=== PATIENT | female | born 1975 | race Caucasian/White ===

== ENCOUNTER 2018-08-19 14:52 | Outpatient (REF) | payer MEDICARE, SELFPAY ==
[2018-08-19 21:27] LABS: Anion Gap 8.6 mmol/L (3-11); BUN 15 mg/dL (7-18); CO2 29.4 mmol/L (21.0-32.0); CREATININE 0.96 mg/dL (0.55-1.02); Calcium 9.2 mg/dL (8.5-10.1); Chloride 102 mmol/L (98-107); Glucose 87 mg/dL (70-100); Sodium 140 mmol/L (136-145)
[2018-08-19 21:40] LABS: Cholesterol 194 mg/dL (50-200); HDL Cholesterol 47 mg/dL (40-60); LDL CHOLESTEROL 124 mg/dL (<100); Triglyceride 105 mg/dL (30-150)
== END 2018-08-19 15:12 ==
LOC: NCHCN 14:52
PROVIDERS: PCP Nurse Practitioner Family; Visit Provider Nurse Practitioner Family
DX: I10 Essential (primary) hypertension (principal); F34.1 Dysthymic disorder; J45.990 Exercise induced bronchospasm; L40.9 Psoriasis, unspecified; E66.01 Morbid (severe) obesity due to excess calories
CPT/HCPCS: 80048; 80061; 83721

== ENCOUNTER 2018-09-29 11:24 | Outpatient (CLI) | payer MEDICARE, SELFPAY ==
--- NOTE | 2018-09-29 14:47 | DI.RAD_ITS ---
SYMPTOMS/DIAGNOSIS: RIGHT KNEE PAIN, M25.561, S/P FALL ON 09/09/18 OUT OF FRONT DOOR RIGHT KNEE: Three views. No acute or healing fracture or dislocation is seen. The soft tissues are unremarkable. IMPRESSION: No acute abnormality.
== END 2018-09-29 11:44 ==
PROVIDERS: PCP Nurse Practitioner Family; Visit Provider Nurse Practitioner
DX: M25.561 Pain in right knee (principal)
CPT/HCPCS: 73562

== ENCOUNTER 2019-04-11 18:49 | Emergency (ER) | payer MEDICARE, SELFPAY ==
[2019-04-11 19:21] VITALS: BP 144/98; PULSE 74; RESP 18; TEMP 36.6; O2SAT 98
--- NOTE | 2019-04-11 19:42 | ED.GENADUL_ITS ---
Discharge Plan Disposition Patient Disposition: HOME Condition: Good Discharge Details Chief Complaint: DentalOral Clinical Impression: Infected dental carries Primary Care Provider: Malini Tijerina ED Provider: Roby Huntley Home Meds and New Rx's Prescriptions: New clindamycin HCl 150 mg capsule 450 mg PO TID 7 Days Qty: 63 RF: 0 No Action WELLBUTRIN SR 200 MG TABLET.SA 200 mg PO BID RF: 0 omega-3 fatty acids-fish oil 1 EACH capsule 1 ea PO RF: 0 ozikihvrfrus-wnaw-psntb acid [Daily Multiple] 1 EACH tablet 1 ea PO RF: 0 metformin 850 MG tablet 850 mg PO Q12H Qty: 180 RF: 4 estradiol 1 MG tablet 1 mg PO DAILY Qty: 90 RF: 4 progesterone micronized [Prometrium] 100 MG capsule 100 mg PO DAILY Qty: 90 RF: 4 lisinopril 10 MG tablet 10 mg PO DAILY RF: 0 Discharge Instructions Instructions: Dental Caries (ED) Additional Instructions: Please take the antibiotic as prescribed. Please continue to take 1000 mg of Tylenol every 6 hours and 600 mg of ibuprofen every 6 hours. Please make sure you are eating yogurt with live cultures while taking the antibiotic to prevent any diarrhea. Please follow-up with your dentist as soon as possible. If you notice any worsening of your symptoms, or any new symptoms such as vomiting, diarrhea, fever, chills, shortness of breath, chest pain, numbness, weakness, or fainting , please return immediately to the emergency department for reevaluation. Please follow up with your primary care provider as soon as possible for reassessment and reevaluation. As always, it was a pleasure participating in your medical care today. Medical Decision Making This is a 43-year-old female who presents today for evaluation of left lower dental pain. She has known dental caries. Physical exam demonstrates dental caries throughout, no evidence of nuchal rigidity, meningitis, periapical abscess, or significant trismus. No evidence of peritonsillar abscess. Signs and symptoms inconsistent with Ludewig's angina. She has no difficulty swallowing, drinking or bending her neck or head. Physical exam is notably concerning for pulpitis. And infected dental caries. We will start the patient on clindamycin secondary to her other antibiotic allergies. We will give her d ental sheet. Dental block was performed the patient had complete resolution of her symptoms with this. Recommend continue Tylenol and Motrin as needed for pain. I have extensively reviewed the treatment plan and discharge instructions with the patient and their family. I have addressed all patient concerns at this time. The patient and family was made aware of what symptoms to monitor for that would warrant a return to the emergency department. Discussed the plan with the patient and family, they demonstrate verbal understanding and agreement with our assessment and plan at this time. Time out was taken to identify the correct patient, procedure, and site. Risks and benefits were discussed with the patient and consent was obtained. Direct pressure was held over the area prior to the procedure to reduce painful injection. 5 cc?s of Lidocaine 1% and Bupivacaine 0.25% was instilled into the left lower posterior jaw space with a 27 gauge needle.Complete analgesia was obtained. The patient tolerated the procedure. There were no complications. HPI General Date/Time Provider Initiated Documentation: 04/11/19 18:59 . HPI Narrative: Is a 43-year-old female with a past medical history of hypertension, diabetes, who presents today for evaluation of left lower dental pain. Patient states that pain is been present for the last 3 days. She has known dental caries but does not see dentist secondary to lack of dental insurance. She denies any fevers or chills, she denies any headache. She does admit to pain towards the left lateral jaw but not over the temples. She denies any discharge. She has not been on any antibiotics recently. She has no other com plaints at this time. Related Data Home Medications Medication Instructions Recorded Confirmed Wellbutrin Sr 200 mg PO BID 07/29/12 12/24/17 lisinopril 10 mg PO DAILY 08/19/14 12/24/17 dxxqzlzexqxu-gaao-ahcug acid 1 ea PO 11/01/15 [Daily Multiple] omega-3 fatty acids-fish oil 1 ea PO 11/01/15 metformin 850 mg PO Q12H #180 tab 09/04/17 estradiol 1 mg PO DAILY #90 tab 09/07/17 progesterone micronized 100 mg PO DAILY #90 cap 09/07/17 [Prometrium] clindamycin HCl 450 mg PO TID 7 Days #63 cap 04/11/19 Previous Rx's Medication Instructions Recorded metformin 850 mg PO Q12H #180 tab 09/04/17 estradiol 1 mg PO DAILY #90 tab 09/07/17 progesterone micronized 100 mg PO DAILY #90 cap 09/07/17 [Prometrium] clindamycin HCl 450 mg PO TID 7 Days #63 cap 04/11/19 Allergies Allergy/AdvReac Type Severity Reaction Status Date / Time lactose Allergy Severe GI Symptoms Unverified 04/11/19 19:26 Penicillins Allergy Intermediate Rash Unverified 04/11/19 19:26 vancomycin Allergy Intermediate Severe GI Unverified 04/11/19 19:26 Symptoms General Stated Complaint: DentalOral STEPHENIE: 4 Review of Systems Review of Systems All systems reviewed & are unremarkable except as noted in HPI and below PFSH Social History Smoking/Tobacco Use Status: Former Tobacco Use Drug use: Never Do you feel safe in your relationship?: Yes Exam Narrative Exam Narrative: 1.Const: Well-nourished, Well-developed, appearing stated age 2.Eyes: PERRL, no conjunctival injection, and symmetrical lids. 3.ENT: Atraumatic external nose and ears. Moist MM. Neck: Symmetric, trachea midline, No thyromegaly. No evidence of periapical abscess, no significant s welling, no trismus, no evidence of retropharyngeal abscess, or tonsillar exudate. 4.CVS: +S1/S2, No murmurs or gallops. Peripheral pulses 2+ and equal in all extremities. Brisk capillary refill in all extremities. 5.RESP: Unlabored respiratory effort. Clear to auscultation bilaterally. No wheezes rales or rhonchi 6.GI: Soft, Nontender/Nondistended, No hepatosplenomegaly. No guarding or r ebound. 7.MSK: Normocephalic/Atraumatic, Extremities w/o deformity or ttp No cyanosis or clubbing, Normal movement of all extremities 8.Skin: Warm, Dry. No rashes or lesions. 9.Neuro: drafter commercial II-XII grossly intact. Sensation grossly intact, no focal neurologic deficits. 10.Psych: (AAO) x3. Appropriate mood and affect Course Vital Signs Temperature 36.6 C 04/11/19 19:21 Pulse 74 04/11/19 19:21 Respiratory Rate 18 04/11/19 19:21 Blood Pressure 144/98 H 04/11/19 19:21 Pulse Oximetry 98 04/11/19 19:21 Temperature 36.6 C 04/11/19 19:21 Temperature Source Skin 04/11/19 19:21 Pulse 74 04/11/19 19:21 Respiratory Rate 18 04/11/19 19:21 Respiratory Effort Non-Labored 04/11/19 19:26 Blood Pressure 144/98 H 04/11/19 19:21 Blood Pressure Position Sitting 04/11/19 19:21 Pulse Oximetry 98 04/11/19 19:21 Oxygen Delivery Method Room Air 04/11/19 19:21 Oxygen Flow Rate 0 04/11/19 19:21 Pain Level 10 04/11/19 19:21 Comment 1000mg APAP @ 1400 04/11/19 19:21
[2019-04-11] MEDS: Clindamycin 150 MG CAP 450 MG PO (20:00)
== END 2019-04-11 20:02 | disposition home or self-care (01) ==
PROVIDERS: Emergency Provider Student in an Organized Health Care Education/Training Program; PCP Nurse Practitioner Family
DX: R68.84 Jaw pain (principal); K04.7 Periapical abscess without sinus
CPT/HCPCS: 64402

== ENCOUNTER 2019-05-19 12:10 | Outpatient (REF) | payer MEDICARE, SELFPAY ==
[2019-05-19 22:46] LABS: BUN 14 mg/dL (7-18); CREATININE 0.93 mg/dL (0.55-1.02); Calcium 8.6 mg/dL (8.5-10.1); Chloride 106 mmol/L (98-107); Glucose 96 mg/dL (70-100); Potassium 4.2 mmol/L (3.5-5.1); Sodium 141 mmol/L (136-145)
[2019-05-19 23:00] LABS: Hemoglobin A1C 5.9 % (4.5-6.2)
== END 2019-05-19 12:30 ==
LOC: NCHCN 12:10
PROVIDERS: PCP Nurse Practitioner Family; Visit Provider Nurse Practitioner Family
DX: I10 Essential (primary) hypertension (principal); F34.1 Dysthymic disorder; E28.2 Polycystic ovarian syndrome; J45.990 Exercise induced bronchospasm; E66.01 Morbid (severe) obesity due to excess calories; Z13.1 Encounter for screening for diabetes mellitus
CPT/HCPCS: 80048; 83036

== ENCOUNTER 2020-01-15 12:22 | Emergency (ER) | payer OTHER, SELFPAY ==
--- NOTE | 2020-01-15 12:22 | ED.GENADUL_ITS ---
Discharge Plan Disposition Patient Disposition: HOME Condition: Good Discharge Details Chief Complaint: DentalOral Clinical Impression: Jaw pain Primary Care Provider: Malini Tijerina ED Provider: Ashlie Zhong Home Meds and New Rx's Prescriptions: New clindamycin HCl 150 mg capsule 450 mg PO TID 7 Days Qty: 63 RF: 0 Continued WELLBUTRIN SR 200 MG TABLET.SA 200 mg PO BID RF: 0 omega-3 fatty acids-fish oil 1 EACH capsule 1 ea PO DAILY AM RF: 0 Daily Multiple 1 EACH tablet 1 ea PO DAILY AM RF: 0 estradiol 1 MG tablet 1 mg PO DAILY Qty: 90 RF: 4 progesterone micronized [Prometrium] 100 MG capsule 100 mg PO DAILY Qty: 90 RF: 4 lisinopril 10 MG tablet 10 mg PO DAILY RF: 0 acetaminophen [Tylenol] 325 mg Tablet 1,000 mg PO PRN PRNRF: 0 ibuprofen 600 mg Tablet 600 mg PO PRN PRNRF: 0 Discharge Instructions Instructions: Dental Abscess (ED) Additional Instructions: Continue to encourage dental hygiene. Encourage water intake. You may continue with the rinses that have been offering some relief. Tylenol and/or ibuprofen as needed for discomfort. Please take the antibiotics as prescribed. Even if symptoms improve, please take entire course. You do need definitive care with a dentist, attached is a list of local dentist as well as dentist that are open during -. If you develop fevers, increased swelling, increased discomfort or other new/worsening symptoms please seek care urgently once again. Referrals: Malini Tijerina [Primary Care Provider] - Discharge Data Discharge Date/Time-TO BE ENTERED AT DEPARTURE: 01/15/20 13:10 Medical Decision Making Patient is a pleasant 44 year old female presenting today with c/c of recurrent left lower, posterior dental pain. states that pain started 2 days ago. Was seen here for pain in the same area last fall. She states she has not been seen by a dentist since that time. She states that this feels the same as last time. She was treated previously with Clindamycin with good resolution of her symptoms. She states that she had low grade fever with a tmax of 99* but denies other systemic symptoms. Has not noted any drainage. States that pain is radiating into the TMJ region. Has been opting to eat softer foods as this is better tolerated. No difficulty swallowing On exam, patient is resting comfortably. No respiratory distress and handling secretions well. She has not external swelling. No lymphadenopathy. No swelling under the tongue. She has hyperplasia for the gingiva along hte buccal and posterior aspect of the #17 tooth. This is the area of discomfort. No fluctu ance, erythema or evidence of drainable abscess. Normal posterior oropharynx with no tonsillar swelling. No palpable abnormality of the neck. Patient and I discussed treatment options. She responded well to Clindamycin previously. Is tolerating PO well. We discussed injection but will hold off at this time. Again, I advised that she needs definitive care with dentist. She was given list of local dentists as well as those open during COVID. She was given strict return precautions, in particular symptoms of worsening infection. All of her questions and concerns were addresse, she is in agremenet with this plan. HPI General Mode of arrival: ambulatory . Date/Time Provider Initiated Documentation: 01/15/20 12:22 . Limitations to Documentation: no limitations . Information obtained by: patient and RN notes reviewed . History of Present Illness 44 year old F presents to the emergency department with the chief complaint of left lower dental pain, described as moderate and similar to prior episodes (infection in the same area last fall), Quality is described as stabbing, and is localized to the mouth. Patient reports no radiation. Patient started experiencing this day(s) (2) and it has been constant. No relieving factors improve symptom(s), Eating worsens symptoms . Patient notes fever/chills (reports tmax of 99*F); denies cough, diaphoresis, loss of appetite, nausea/vomiting, rash, shortness of breath and weakness. Patient did receive the following treatments prior to arrival, none Related Data Home Medications Medication Instructions Recorded Confirmed Wellbutrin Sr 200 mg PO BID 07/29/12 01/15/20 lisinopril 10 mg PO DAILY 08/19/14 01/15/20 Daily Multiple 1 ea PO DAILY AM 11/01/15 omega-3 fatty acids-fish oil 1 ea PO DAILY AM 11/01/15 estradiol 1 mg PO DAILY #90 tab 09/07/17 01/15/20 progesterone micronized 100 mg PO DAILY #90 cap 09/07/17 01/15/20 [Prometrium] acetaminophen [Tylenol] 1,000 mg PO PRN PRN 01/15/20 01/15/20 clindamycin HCl 450 mg PO TID 7 Days #63 cap 01/15/20 ibuprofen 600 mg PO PRN PRN 01/15/20 01/15/20 Previous Rx's Medication Instructions Recorded estradiol 1 mg PO DAILY #90 tab 09/07/17 progesterone micronized 100 mg PO DAILY #90 cap 09/07/17 [Prometrium] clindamycin HCl 450 mg PO TID 7 Days #63 cap 01/15/20 Allergies Allergy/AdvReac Type Severity Reaction Status Date / Time lactose Allergy Severe GI Symptoms Unverified 01/15/20 12:29 Penicillins Allergy Intermediate Rash Unverified 01/15/20 12:29 vancomycin Allergy Intermediate Severe GI Unverified 01/15/20 12:29 Symptoms General STEPHENIE: 4 Review of Systems Constitutional Constitutional: Reports as per HPI, Denies chills, Denies fatigue, Denies fever(s), Denies headache(s) and Denies poor appetite Eyes Eyes: Denies change in vision and Denies irritation ENT Ears, Nose, Mouth, and Throat: Reports as per HPI, Reports dental pain, Denies dysphagia, Denies dizziness, Denies dry mouth, Denies ear discharge, Denies otalgia, Reports facial pain, Denies headache(s), Denies hoarseness, Denies lip swelling, Denies nasal congestion, Denies odynophagia and Denies sore throat Cardiovascular Cardiovascular: Reports as per HPI and Denies chest pain Respiratory Respiratory: Reports as per HPI and Denies cough Gastrointestinal Gastrointestinal: Reports as per HPI, Denies dysphagia, Denies nausea, Denies odynophagia and Denies vomiting Integumentary/Breasts Skin/Breast: Reports as per HPI, Denies erythema, Denies rash and Denies skin pain Neurologic Neurologic: Reports as per HPI, Denies dizziness and Denies headache(s) Endocrine Endocrine: Denies fatigue Allergic/Immunologic Allergic/Immunologic: Denies lip swelling REPLACED BY [facility] Social History Smoking/Tobacco Use Status: Former Tobacco Use Drug use: Never Do you feel safe in your relationship?: Yes Exam Const General: cooperative, healthy appearing, comfortable, no acute distress, well developed and well groomed Nutritional Appearance: well nourished and obese Orientation: alert and awake [facility] Head: normal to inspection, normocephalic and atraumatic Ears: hearing grossly normal bilaterally, external ears normal and TM's normal bilaterally General nose exam: external nose normal and nares normal Face and sinus: normal facial exam, sinuses nontender and face symmetric Mouth: oral mucosae normal, lip normal, tongue normal, oropharynx normal, no drooling, normal lip, No mouth trauma, no muffled voice, no trismus and No restricted motion Teeth and gingiva: dentition normal (caries are noted but not frankly decaying dentition), caries and gingiva abnormal hypertrophic (hyperplasia noted around the #17 toooth where pain is localized) and tender (at area of #17 tooth, along buccal side); without any purulent discharge, not erythematous, not receding, not pallid and not discolored Throat: posterior oropharynx normal, tonsils normal and uvula midline Eyes General: appearance normal, both eyes and all related structures Neck Neck: normal visual inspection, full ROM, no lymphadenopathy, supple and no anterior neck swelling Resp Effort & Inspection: normal respiratory effort, able to speak in complete sentences and no respiratory distress Auscultation: clear to auscultation bilaterally, no rales, no rhonchi and no wheezes Cardio Rate: regular rate Rhythm: regular rhythm Heart Sounds: S1 normal and S2 normal Skin General skin exam: no rashes or lesions noted Trauma: no lacerations or abrasions Neuro General: patient alert and patient awake Cognition: normal cognition Speech: speech normal Gait: normal gait Psych Appearance: grossly normal and well kempt Mental Status: mental status grossly normal Speech and Movement: speech and movement normal
[2020-01-15 12:26] VITALS: BP 140/77; PULSE 69; RESP 16; TEMP 36.2; O2SAT 99
== END 2020-01-15 13:10 | disposition home or self-care (01) ==
PROVIDERS: Emergency Provider Physician Assistant; PCP Nurse Practitioner Family
DX: R68.84 Jaw pain (principal)
CPT/HCPCS: 81025; 99283; 81003

== ENCOUNTER → 2020-07-09 15:11 | Outpatient (REF) | payer OTHER, SELFPAY ==
--- NOTE | 2020-07-09 14:15 | PAPFT_PTH ---
PATIENT: Marlene Ruffin LOC: [facility]#:[id number] AGE/SX: 50/F ROOM: RE07/09/[address]: Malini Tijerina : 1975 BED: DIS: SPEC #: [id number] RECD: 07/10/20 12:57 STATUS: JULIUS REQ #: [id number] HALEY: 07/09/20 14:[address]: Malini Tijerina DEPT: [facility] Cytology RECD BY: Sarah Tena Tissues: 1 - CX/ENDOCX FOR PAP SMEARS Procedures: PAP THIN PREP/UVM Screening HPV DNA PROBE Comments: [id number]
[2020-07-09 22:20] LABS: Hemoglobin A1C 5.7 % (<5.7)
[2020-07-09 22:27] LABS: ALT 36 U/L (14-59); AST 15 U/L (15-37); Alkaline Phosphatase 54 U/L (46-116); Anion Gap 7.7 mmol/L (3-11); BUN 15 mg/dL (7-18); Bilirubin, Total 0.2 mg/dL (0.2-1.0); CO2 27.3 mmol/L (21.0-32.0); CREATININE 0.99 mg/dL (0.55-1.02); Calcium 8.9 mg/dL (8.5-10.1); Calculated LDL 137 mg/dL (<100); Chloride 103 mmol/L (98-107); Cholesterol 200 mg/dL (<200); Glucose 88 mg/dL (74-106); HDL Cholesterol 43 mg/dL (40-60); Potassium 3.9 mmol/L (3.5-5.1); Sodium 138 mmol/L (136-145); Total Protein 7.6 g/dL (6.4-8.2); Triglyceride 101 mg/dL (<150)
== END ==
LOC: NCHCN 15:11
PROVIDERS: PCP Nurse Practitioner Family; Visit Provider Nurse Practitioner Family
DX: R73.03 Prediabetes (principal); I10 Essential (primary) hypertension; E28.2 Polycystic ovarian syndrome; F34.1 Dysthymic disorder; E66.01 Morbid (severe) obesity due to excess calories; Z12.4 Encounter for screening for malignant neoplasm of cervix; Z01.419 Encounter for gynecological examination (general) (routine) without abnormal findings; Z11.51 Encounter for screening for human papillomavirus (HPV)
CPT/HCPCS: 80053; 80061; 88142; 83036; 84443; 87624

== ENCOUNTER 2020-07-11 01:17 | Outpatient (CLI) | payer OTHER, SELFPAY ==
--- NOTE | 2020-07-11 | DI.MAMMO_ITS ---
EXAM: MG MAMMO SCREENING CLINICAL HISTORY: BASELINE, SCREENING,Z12.31. TECHNIQUE: Bilateral full field digital CC and MLO mammographic images were obtained with 3D tomosyn thesis and utilizing computer aided detection (CAD). COMPARISON: None. This is a baseline screening mammogram on this 45-year-old patient. FINDINGS: There are multiple benign-appearing lymph nodes in the upper outer quadrants-axillary tail regions bi laterally. However, anteriorly in the left breast there is a 5 x 4 millimeter noncalcified nodule noted which do es not have typical location of a lymph node. Recommend ultrasound. No malignant-appearing microcal cification groups in this region or elsewhere in either breast. There is no new architectural distor tion nor skin thickening-retraction. IMPRESSION: No radiographic evidence of malignancy in the right breast. 5 x 4 millimeter noncalcified nodule anteriorly located, somewhat medial of center in the left breast . Breast ultrasound recommended to determine if this is solid or cystic. BI-RADS Category 0 - Assessment Incomplete: Need additional imaging evaluation Breast Density - Category B - Scattered areas of fibroglandular density Breast density Category C or D implies that the patient has dense breast tissue. Dense breast tissue can make it harder to find cancer on a mammogram. Dense breast tissue is also associated with an incr eased risk of breast cancer. This information about the result of the mammogram report was provided to the patient to raise their awareness. Use this report when you speak with the patient about their risks for breast cancer, which includes their family history. At that time, you may recommend additional screening tests (Ultrasoun d or MRI) as these tests may add significant information. A negative radiographic report should not delay biopsy if a dominant or clinically suspicious mass is present. Up to ten percent of cancers are not identified on mammography. A negative report may reinforce clinical impression. Adenosis and dense breasts may obscure an underlying neoplasm. False positive reports average 6 to 10%. Patient will receive a letter notifying them of these results.
== END 2020-07-11 01:37 ==
PROVIDERS: PCP Nurse Practitioner Family; Visit Provider Nurse Practitioner Family
DX: Z12.31 Encounter for screening mammogram for malignant neoplasm of breast (principal); R92.8 Other abnormal and inconclusive findings on diagnostic imaging of breast
CPT/HCPCS: 77063; 77067

== ENCOUNTER 2020-07-16 01:13 | Outpatient (CLI) | payer OTHER, SELFPAY ==
--- NOTE | 2020-07-16 | DI.US_ITS ---
EXAM: US BREAST LT LIMITED CLINICAL HISTORY: F/U MAMMO, LT BREAST NODULE TECHNIQUE: Ultrasound right breast performed using standard protocol. COMPARISON: Recent baseline mammogram of 07/11/2020 was reviewed FINDINGS: There is a 5 x 3 millimeter small benign-appearing conglomeration microcyst at the 10 o'clock positio n. This benign-appearing ultrasound finding corresponds to the finding on the mammogram. No other s ignificant focal ultrasound findings in all 4 quadrants nor in the retroareolar region. IMPRESSION: There is a 5 x 3 millimeter conglomeration microcysts which corresponds to the finding on the mammogr am. This has benign appearance. Appropriate follow-up is repeat left breast imaging in 6 months. BI-RADS Category 3 - 6 month - Probably Benign Finding: Recommend follow-up ultrasound in 6 months DATA REPOSITORY:
== END 2020-07-16 01:33 ==
PROVIDERS: PCP Nurse Practitioner Family; Visit Provider Nurse Practitioner Family
DX: R92.8 Other abnormal and inconclusive findings on diagnostic imaging of breast (principal); N60.02 Solitary cyst of left breast
CPT/HCPCS: 76642

== ENCOUNTER → 2020-07-20 01:19 | Outpatient (CLI) | payer OTHER, SELFPAY ==
--- NOTE | 2020-07-20 14:00 | NS.NUTBLAN_ITS ---
Marlene is a 45 year old woman referred for Medical Nutrition Therapy for morbid obesity, prediabetes and in planning stages of bariatric surgery at [facility]. Wt: 288 lbs, Ht: 5'4 BMI 48. Most recent A1C: 5.9% (07/10/20). PMH: PCOS, used to take metformin. She takes MVI, Vit E and D, lisinopril, HCTZ. Marlene reports various diets she has tried in the past such as Atkins and Keto and used to walk up to 7 miles a day. Weight loss was modest and did not last. She works from home and cares for her grandson some days. She does not smoke and only drinks occasionally. Diet recall indicates that she typically skips breakfast, eats lunch at home (sandwich) and cooks dinner most nights. Intervention: Education today focused on starting a higher protein diet pre surgery with 3 meals, 2 snacks daily along with 30 min of exercise 5 x week. I also recommended adding 1000 mcg biotin daily to support healthy hair/nail growth. Marlene was very engaged in education and felt that she could incorporate several of the recommendations. She is planning on starting to drink protein shakes for breakfast and focus on non starchy vegetables, complex carbs and lean protein. She wants to get a treadmill to have at home to make exercise easier. I encouraged her to start logging her meals with goal of : [id number] kcal, 80- 100 g carbohydrate, 60-80 g protein, 40-50 g fat. Marlene is a motivated candidate for bariatric surgery and hopes to implement dietary changes and daily exercise into her routine prior to surgery. Plan: follow up meeting scheduled for 08/24/20 at 2 pm. Goal is more 3-5 lbs weight loss per month.
== END ==
PROVIDERS: PCP Nurse Practitioner Family; Visit Provider Dietitian, Registered
DX: E66.01 Morbid (severe) obesity due to excess calories (principal); R73.03 Prediabetes; Z71.3 Dietary counseling and surveillance
CPT/HCPCS: 97802

== ENCOUNTER 2020-08-30 03:42 | Outpatient (CLI) | payer OTHER, SELFPAY ==
--- NOTE | 2020-08-30 14:00 | NS.NUTBLAN_ITS ---
Marlene returns for medical nutrition therapy for obesity in preparation for bariatric surgery [place] [facility]. Wt: 284 lbs, 65 inches, BMI44. Marlene has lost 4 lbs in last 4 weeks. Marlene reports she is taking MVI and biotin as recommended and has started to follow a lower carb, high protein diet. She has also started to eat 4-5 times daily and setting alarms on her phone to remind her of eating. She has purchased a treadmill and uses it daily- walking about 1 mile daily. Today's session focused on ways to increase protein in diet and increasing variety in her diet. She was very receptive to information and continues to be very positive about her life style changes. She reports great support at home from family. Plan: start finding protein shakes that are enjoyable, continue current meal plan and daily exercise. Follow up appt. scheduled for 09/20/20 at 1 pm.
== END 2020-08-30 04:02 ==
PROVIDERS: PCP Nurse Practitioner Family; Visit Provider Dietitian, Registered
DX: E66.01 Morbid (severe) obesity due to excess calories (principal); Z71.3 Dietary counseling and surveillance
CPT/HCPCS: 97803

== ENCOUNTER 2020-09-20 03:05 | Outpatient (CLI) | payer OTHER, SELFPAY ==
--- NOTE | 2020-09-20 13:30 | NS.NUTBLAN_ITS ---
Marlene returns for her third and final nutrition counseling session prior to bariatric surgery at [facility]. Wt: 286 lbs, Wt: 5'3 BMI 49. Marlene has been unable to lose weight despite following meal plan and exercising 30 min 5 days per week. She is frustrated but hopeful that wieght loss surgery will be successful for her. Reviewed with Marlene that weight loss is very difficulty and once BMI > 40 often unsuccessful without surgical intervention. Food record indicates following [id number] kcal meal plan with 80-100 g CHO, 60- 80 g protein. Using [place] whey protein for protein shakes daily. Meds: MVI, biotin and calcium Overall, Marlene has been educated on weight loss surgery, risks and benefits and is knowledgeable about what foods she needs to have available at home for when she returns s/p surgery. Marlene has great family support and expect positive outcome. Will follow s/p surgery to help optimize nutrient intake and weight loss. Goal weight 1 year post surgery 160-170 lbs.
== END 2020-09-20 03:06 | disposition home or self-care (01) ==
LOC: DS 03:05
PROVIDERS: PCP Nurse Practitioner Family; Visit Provider Dietitian, Registered
DX: E66.01 Morbid (severe) obesity due to excess calories (principal); Z71.3 Dietary counseling and surveillance
CPT/HCPCS: 97803

== ENCOUNTER 2020-12-19 09:30 | Outpatient (REF) | payer OTHER, SELFPAY ==
[2020-12-19 14:38] LABS: TSH (W/Ref FT4) 1.44 uIU/mL (0.36-3.74)
== END 2020-12-19 09:31 | disposition home or self-care (01) ==
LOC: NCHCN 09:30
PROVIDERS: PCP Nurse Practitioner Family; Visit Provider Nurse Practitioner Family
DX: E66.01 Morbid (severe) obesity due to excess calories (principal); I10 Essential (primary) hypertension
CPT/HCPCS: 84443

== ENCOUNTER 2021-01-15 00:47 | Outpatient (CLI) | payer OTHER, SELFPAY ==
--- NOTE | 2021-01-15 | DI.US_ITS ---
Exam(s) MG MAMMO DIAGNOSTIC UNI US BREAST LT LIMITED EXAM: MG MAMMO DIAGNOSTIC UNI and U/S breast LT limited CLINICAL HISTORY: DIAGNOSTIC,F/U BREAST MASS,R92.8. TECHNIQUE: Craniocaudal and mediolateral oblique Full Field Digital Mammography views of the left br east with Computer Aided Diagnosis followed by Tomosynthesis and left breast ultrasound. COMPARISON: Previous available for comparison. FINDINGS: Mammography/Tomosynthesis: Masses/Architectural Distortion: Stable nodule in the anterior medial left breast. No suspicious mas ses or areas of architectural distortion. Microcalcifictions: No suspicious pleomorphic-type are seen. Skin Thickening/Nipple Retraction: None. Left breast US: Echotexture: Normal appearance of the glandular tissue. Shadowing: No suspicious foci. Cyst: There is again seen a collection of cysts at the 10 o'clock position of the left breast which a re unchanged compared to the prior examination. Solid lesions: None seen. Ductal dilation: None. IMPRESSION: 1. No evidence of malignancy is noted. 2. Unless there is more urgent need, follow-up screening mammography is recommended, as per [place] [employer] guidelines. 3. The findings were discussed with the patient on the date of the examination. BI-RADS Category 2 - Benign Findings Breast Density - Category B - Scattered areas of fibroglandular density Breast density Category C or D implies that the patient has dense breast tissue. Dense breast tissue can make it harder to find cancer on a mammogram. Dense breast tissue is also associated with an incr eased risk of breast cancer. This information about the result of the mammogram report was provided to the patient to raise their awareness. Use this report when you speak with the patient about their risks for breast cancer, which includes their family history. At that time, you may recommend additional screening tests (Ultrasoun d or MRI) as these tests may add significant information. A negative radiographic report should not delay biopsy if a dominant or clinically suspicious mass is present. Up to ten percent of cancers are not identified on mammography. A negative report may reinforce clinical impression. Adenosis and dense breasts may obscure an underlying neoplasm. False positive reports average 6 to 10%. Patient will receive a letter notifying them of these results.
== END 2021-01-15 01:07 ==
PROVIDERS: PCP Nurse Practitioner Family; Visit Provider Nurse Practitioner Family
DX: Z12.31 Encounter for screening mammogram for malignant neoplasm of breast (principal); R92.8 Other abnormal and inconclusive findings on diagnostic imaging of breast; N60.12 Diffuse cystic mastopathy of left breast
CPT/HCPCS: 76642; 77061; 77065; G0279

== ENCOUNTER 2021-08-16 09:44 | Outpatient (REF) | payer SELFPAY ==
--- OUTSIDE RECORDS SUMMARY | 2021-08-16 09:51 | XMS_ITS ---
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 ? Active ? 8640 RxNorm Prednisone ? ? Active ? 45341 RxNorm Vancomycin ? ? Active ? Medications Name Status Start Date Stop Date ? ? biotin Active ? Not available 5000 mcg daily calcium citrate Active ? Not available 5,ooo bid estradiol Completed ? 03/27/2021 Fish Oil 120 mg-180 mg-1000 mg capsule Active ? Not available Take by oral route. hydroxyzine HCl 25 mg tablet Completed ? 09/2019 Take 1 tablet 3 times a day by oral route. lisinopril 10 mg tablet Active ? Not avai lable Take 1 tablet every day by oral route. Mirena Completed ? 03/27/2021 Multi Vitamin Completed ? 05/16/2020 bupro multivitamin Active ? Not available with minerals 1 tab every day naltrexone 50 mg tablet Active ? Not avai lable Take 1 tablet every day by oral route. Prilosec 40 mg capsule,delayed release Active ? Not available Take 1 capsule every day by oral route. Prometrium 100 mg capsule Active ? Not av ailable Take 2 capsules every day by oral route for 12 days. CHERI 250 250 mg tablet Active ? Not avail able Take 1 tablet every day by oral route. Vitamin D Active ? Not available 5000 units bid Wellbutrin SR 200 mg tablet, 12 hr sustained-release Active ? Not available Take 1 tablet twice a day by oral route. Zofran 4 mg tablet Active ? Not available Take 1 tablet as needed by oral route. zolpidem 5 mg tablet Completed ? 08/15/2020 take 1-2 PO night of sleep study if needed Problems Name Status Onset Date Source ? Morbid Obesity Active 05/16/2020 ? Personality Disorder Active 05/16/2020 ? Nicotine Dependence Active 05/16/2020 ? Hypertensive Disorder Active 05/16/2020 ? Asthma Active 05/16/2020 ? Psoriasis Active 05/16/2020 ? Prediabetes Active 05/16/2020 ? Abnormal Cervical Papanicolaou Smear Active 05/16/2020 ? Obstructive Sleep Apnea Syndrome Active ? ? Procedures None recorded. Results Lab Results None recorded. Past Encounters 03/27/2021 Obstructive Sleep Apnea Syndrome Natalie Smith CLIENT ACCOUNT REPRESENTATIVE: [address] [place] [phone], Ph. 10/31/2020 Obstructive Sleep Apnea Syndrome Natalie Smith CLIENT ACCOUNT REPRESENTATIVE: [address] [place] [phone], Ph. 08/15/2020 Obstructive Sleep Apnea Syndrome Natalie Smith CLIENT ACCOUNT REPRESENTATIVE: [address] [place] [phone], Ph. 07/04/2020 Morbid Obesity Natalie Smith CLIENT ACCOUNT REPRESENTATIVE: [address] [place] [phone], Ph. Social History Tobacco Smoking Status Never Smoker Vaccine List None recorded. Plan of Care Reminders Provider Appointments None ? ? recorded. Lab None ? ? recorded. Referral None ? ? recorded. Procedures None ? ? recorded. Surgeries None ? ? recorded. Imaging None ? ? recorded. Vitals 03/27/2021 12:30PM Office 30 Height Weight BMI Blood Pressure 162.56 cm 100.7 kg 38.1 kg/m2 122/72 mm[Hg] 10/31/2020 02:45PM Office 30 Height 162.56 cm 08/15/2020 01:30PM Office 30 Height Weight BMI 162.56 cm 130.63 kg 49.4 kg/m2 07/04/2020 02:30PM New Patient 45 Height Weight BMI 162.56 cm 117.93 kg 44.6 kg/m2
[2021-08-16 15:40] LABS: Ferritin 273 ng/mL (8-252)
== END 2021-08-16 09:45 | disposition home or self-care (01) ==
LOC: NCHCN 09:44
PROVIDERS: PCP Nurse Practitioner Family; Visit Provider Nurse Practitioner Family
DX: I10 Essential (primary) hypertension (principal); R78.89 Finding of other specified substances, not normally found in blood
CPT/HCPCS: 82728